=== PATIENT | female | born 1990 | race Caucasian/White ===

== ENCOUNTER 2018-04-15 23:35 | Emergency (ER) | payer OTHER, SELFPAY ==
[2018-04-15 23:35] VITALS: BP 168/81; PULSE 115; RESP 20; TEMP 36.6; O2SAT 97; BMI 31.2
--- NOTE | 2018-04-15 23:43 | ED.VISSUMM ---
- ER Visit Summary Date of Service: 04/15/18 Chief Complaint: Left wrist injury History of Present Illness: The patient is a 27 F who presents for injury to the left wrist. Patient states approximately 6 hours ago she was getting out of an above ground pool and fell off the ladder, landing on her back with her arm behind her. She is complaining of left wrist pain. She denies any loss of consciousness, head injury, neck or back pain. No other injuries other than the wrist. She is right-handed. She applied ice to the hand and was not to come to the emergency department, however noted that the pain has been worsening, now with some mild numbness to the hand. Physical Examination: Vital signs: afebrile, hemodynamically stable, no hypoxia on room air General: well nourished, well developed, in no distress Skin: warm, dry, no abrasions or contusions HEENT: normocephalic and atraumatic; PERRL, EOMI, moist mucous membranes Cardiovascular: Tachycardic rate and rhythm, 2+ radial pulses Respiratory: No increased work of breathing MSK: Moves all extremities, swelling and tenderness to the radial side dorsum of the left wrist without obvious deformity, positive snuffbox tenderness. Patient able to wiggle all fingers. Sensation intact all dermatomes. Full range of motion of the elbow and shoulder. No deformities to the forearm or humerus. Neuro: Awake and alert, oriented ?4. No facial droop, sensation and motor function intact and symmetric Test Results: Patient was offered and declined pain medication at this time. An icepack was applied to the wrist. X-rays were obtained. Emergency Department Course and Treatment: Patient was offered and declined pain medication at this time. An icepack was applied to the wrist. X-rays were obtained and showed no obvious fractures or dislocations. However given that patient had tenderness over the snuffbox and also swelling and maximal pain in this area, a thumb spica splint was placed using plaster in case of occult scaphoid fracture. After splint placement patient had good cap refill and sensation in the thumb and was still able to wiggle her fingers. Patient was given follow-up with orthopedics in 1 week for repeat evaluation. She was given one [place] in the emergency department for worsening pain. She was given a prescription for 8 [place] to use for severe pain at home and to help with nighttime throbbing. Otherwise she will use [id number] pain medication of her choice for mild to moderate pain. Return precautions given. Patient discharged home. Treatment Plan: [] Disposition: [] Impression: Left wrist sprain, concern for occult left scaphoid fracture This note was generated with [employer] dictation software. It may contain incorrect words, spelling, and punctuation that were not noted in review of the chart prior to signing ED Disposition - Plan for ED Patient: Disposition: Home or Assisted Living Chief Complaint: Upper Extremity Injury Instructions: ED Fx Wrist Navicular Poss, ED Sprain Wrist Prescriptions: Hydrocodone Bitart/Apap 5-325 [[place] 5MG-325MG] 1 tab PO Q6H PRN PRN 3 Days #8 tab PRN Reason: Pain Referrals: Casa Nieves DO [STAFF PHYSICIAN] - 1 Week (left wrist sprain, no fracture on xray but concern for possible occult scaphoid fracture) Anita Sanchez MD [Primary Care Provider] - As Needed Additional Instructions: Your x-ray did not show a fracture of the wrist, however where you are hurting and have the swelling is concerning for a possible fracture that will not be visible on x-ray for a week. Please keep the splint in place until you follow-up with the orthopedic doctor. Keep it dry, and keep the arm elevated as much as possible. Ice your wrist 3-4 times a day. You may use ibuprofen or Tylenol as needed for pain. You may use the [place] as needed for severe pain or nighttime pain. If you have any worsening of your condition or any new concerning symptoms, please return immediately to the emergency department for another evaluation.
--- NOTE | 2018-04-15 23:45 | RAD_ITS ---
STUDY: X-RAY - LEFT WRIST REASON FOR EXAM: Female, 27 years old. pt fell from pool ladder, left wrist pain TECHNIQUE: 3 view(s) of the wrist were obtained. COMPARISON: None. FINDINGS: Normal visualized distal radius and ulna. Normal radiocarpal articulation. Normal distal radioulnar articulation. Normal carpal bones. Normal carpal articulations. Normal carpometacarpal articulation of the thumb. Normal second through fifth carpometacarpal articulations. Normal visualized metacarpal bones. The soft tissue structures are unremarkable. RAD/Wrist min 3 Views IMPRESSION: Normal x-ray examination of the wrist. Electronically Signed: Mega Reardon MD at 0:10 EDT Tel , Service support ,
--- NOTE | 2018-04-15 23:46 | ED.DCSUM_ITS ---
- ER Visit Summary Date of Service: 04/15/18 Chief Complaint: Left wrist injury History of Present Illness: The patient is a 27 F who presents for injury to the left wrist. Patient states approximately 6 hours ago she was getting out of an above ground pool and fell off the ladder, landing on her back with her arm behind her. She is complaining of left wrist pain. She denies any loss of consciousness, head injury, neck or back pain. No other injuries other than the wrist. She is right-handed. She applied ice to the hand and was not to come to the emergency department, however noted that the pain has been worsening , now with some mild numbness to the hand. Physical Examination: Vital signs: afebrile, hemodynamically stable, no hypoxia on room air General: well nourished, well developed, in no distress Skin: warm, dry, no abrasions or contusions HEENT: normocephalic and atraumatic; PERRL, EOMI, moist mucous membranes Cardiovascular: Tachycardic rate and rhythm, 2+ radial pulses Respiratory: No increased work of breathing MSK: Moves all extremities, swelling and tenderness to the radial side dorsum of the left wrist without obvious deformity, positive snuffbox tenderness. Patient able to wiggle all fingers. Sensation intact all dermatomes. Full range of motion of the elbow and shoulder. No deformities to the forearm or humerus. Neuro: Awake and alert, oriented ?4. No facial droop, sensation and motor function intact and symmetric Test Results: Patient was offered and declined pain medication at this time. An icepack was applied to the wrist. X-rays were obtained. Emergency Department Course and Treatment: Patient was offered and declined pain medication at this time. An icepack was applied to the wrist. X-rays were obtained and showed no obvious fractures or dislocations. However given that patient had tenderness over the snuffbox and also swelling and maximal pain in this area, a thumb spica splint was placed using plaster in case of occult scaphoid fracture. After splint placement patient had good cap refill and sensation in the thumb and was still able to wiggle her fingers. Patient was given follow-up with orthopedics in 1 week for repeat evaluation. She was given one West in the emergency department for worsening pain. She was given a prescription for 8 West to use for severe pain at home and to help with nighttime throbbing. Otherwise she will use [id number] pain medication of her choice for mild to moderate pain. Return precautions given. Patient discharged home. Treatment Plan: [] Disposition: [] Impression: Left wrist sprain, concern for occult left scaphoid fracture This note was generated with [employer] dictation software. It may contain incorrect words, spelling, and punctuation that were not noted in review of the chart prior to signing ED Disposition - Plan for ED Patient: Disposition: Home or Assisted Living Chief Complaint: Upper Extremity Injury Instructions: ED Fx Wrist Navicular Poss, ED Sprain Wrist Prescriptions: Hydrocodone Bitart/Apap 5-325 [West 5MG-325MG] 1 tab PO Q6H PRN PRN 3 Days #8 tab PRN Reason: Pain Referrals: Casa Nieves DO [STAFF PHYSICIAN] - 1 Week (left wrist sprain, no fracture on xray but concern for possible occult scaphoid fracture) Anita Sanchez MD [Primary Care Provider] - As Needed Additional Instructions: Your x-ray did not show a fracture of the wrist, however where you are hurting and have the swelling is concerning for a possible fracture that will not be visible on x-ray for a week. Please keep the splint in place until you follow- up with the orthopedic doctor. Keep it dry, and keep the arm elevated as much as possible. Ice your wrist 3-4 times a day. You may use ibuprofen or Tylenol as needed for pain. You may use the West as needed for severe pain or nighttime pain. If you have any worsening of your condition or any new concerning symptoms, please return immediately to the emergency department for another evaluation.
--- NOTE | 2018-04-16 00:59 | DCINST.ED_ITS ---
ED Disposition - Plan for ED Patient: Disposition: Home or Assisted Living Chief Complaint: Upper Extremity Injury Instructions: ED Fx Wrist Navicular Poss, ED Sprain Wrist Prescriptions: Hydrocodone Bitart/Apap 5-325 [[place] 5MG-325MG] 1 tab PO Q6H PRN PRN 3 Days #8 tab PRN Reason: Pain Referrals: Casa Nieves DO [STAFF PHYSICIAN] - 1 Week (left wrist sprain, no fracture on xray but concern for possible occult scaphoid fracture) Anita Sanchez MD [Primary Care Provider] - As Needed Additional Instructions: Your x-ray did not show a fracture of the wrist, however where you are hurting and have the swelling is concerning for a possible fracture that will not be visible on x-ray for a week. Please keep the splint in place until you follow- up with the orthopedic doctor. Keep it dry, and keep the arm elevated as much as possible. Ice your wrist 3-4 times a day. You may use ibuprofen or Tylenol as needed for pain. You may use the [place] as needed for severe pain or nighttime pain. If you have any worsening of your condition or any new concerning symptoms, please return immediately to the emergency department for another evaluation.
[2018-04-16] MEDS: HYDROcodone Bitartrate/Apap 5/325 Tablet PO (01:11)
[2018-04-16 01:13] VITALS: PULSE 93; O2SAT 96
== END 2018-04-16 01:13 | disposition home or self-care (01) ==
PROVIDERS: Emergency Provider Emergency Medicine; Family Provider Internal Medicine; PCP Internal Medicine
DX: S63.502A Unspecified sprain of left wrist, initial encounter (principal); W17.89XA Other fall from one level to another, initial encounter; Y93.89 Activity, other specified; Y92.9 Unspecified place or not applicable
CPT/HCPCS: 29125; 73110; 99283

== ENCOUNTER 2019-06-11 12:23 | Day surgery (SDC) | payer BC, SELFPAY ==
[2019-06-11] VITALS (7 sets, daily range): BP systolic 114–133; BP diastolic 69–79; PULSE 64–111; RESP 16–20; TEMP 36.2–36.9; O2SAT 95–99; BMI 29.0
--- NOTE | 2019-06-11 12:17 | PCM.HP.BLA ---
History and Physical Date of Admission: 06/11/19 Pre-Op History and Physical ? HPI: The patient is a 29 year old female presenting for pre-operative visit. She is scheduled for?laparoscopic removal of ectopic and control of hemorrhage, for?ruptured suspected right ectopic on?today. ??Procedure discussed along with risks, benefits and complications. ?Other alternatives discussed for management. Consent form signed??Yes.? PAST?MEDICAL?HISTORY PAST MEDICAL HISTORY Diagnosis Date ? Anemia ? ? as a child ? Anxiety disorder 12/15/2015 ? Bronchitis in child ? ? Elevated WBC count 12/09/2018 ? Herpes simplex without mention of complication ? ? ? PAST?SURGICAL?HISTORY PAST SURGICAL HISTORY Procedure Laterality Date ? DELIVERY ONLY ? 08/01/15 ? , low transverse ? INSERT INTRAUTERINE DEVICE ? 11/20/2016 ? ? CURRENT?MEDICATIONS Current Outpatient Medications Medication Sig Dispense Refill ? sertraline (ZOLOFT) 100 mg tablet DAILY ? ? ? Etonogestrel-Ethinyl Estradiol (NUVARING) 0.12-0.015 mg/24 hr vaginal ring Use 1 Each vaginally as directed. INSERT ONE(1) RING VAGINALLY AND LEAVE IN PLACE FOR THREE WEEKS, THEN REMOVE FOR 1 WEEK. (Patient not taking: Reported on 06/11/2019 ) 4 Each 14 ? No current facility-administered medications for this visit.? ? ALLERGIES:?Patient has no known allergies. ? PERSONAL HISTORY:? SOCIAL?HISTORY Social History ??Socioeconomic History ?Marital status: ?Spouse name: St Phillips ?Number of children: 1 ?Years of education: Not on file ?Highest education level: Not on file ??Occupational History ?Not on file ??Social Needs ?Financial resource strain: Not on file ?Food insecurity: ?Worry: Not on file ?Inability: Not on file ?Transportation needs: ?Medical: Not on file ?Non-medical: Not on file ??Tobacco Use ?Smoking status: Current Every Day Smoker ?Packs/day: 1.00 ?Years: 11.00 ?Pack years: 11 ?Types: Cigarettes ?Smokeless tobacco: Never Used ??Substance and Sexual Activity ?Alcohol use: Yes ?Alcohol/week: 5.0 standard drinks ?Types: 2 Cans of Beer (12oz) per week ?Drug use: No ?Frequency: 1.0 times per week ?Comment: Occasional marijuana, helps sleep at night, last used 8 months ago- 01/11/2015 ?Sexual activity: Yes ?Partners: Male ? control/protection: IUD ??Lifestyle ?Physical activity: ?Days per week: Not on file ?Minutes per session: Not on file ?Stress: Not on file ??Relationships ?Social connections: ?Talks on phone: Not on file ?Gets together: Not on file ?Attends synagogue service: Not on file ?Active member of club or organization: Not on file ?Attends meetings of clubs or organizations: Not on file ?Relationship status: Not on file ?Intimate partner violence: ?Fear of current or ex partner: Not on file ?Emotionally abused: Not on file ?Physically abused: Not on file ?Forced sexual activity: Not on file ??Other Topics ?Concerns: ?Not on file ??Social History Narrative ?Not on file ? FAMILY HISTORY:? FAMILY?HISTORY FAMILY HISTORY Problem Relation Age of Onset ? Cancer Mother ?Brain ? Hypertension Father ? ? No Known Problems Sister ? ? No Known Problems Brother ? ? REVIEW OF SYMPTOMS: GENERAL: denies fevers or chills ENDOCRINOLOGY: has not been on steroids Cardiology : denies palpitations or chest pain Respiratory: denies SOB or cough Hematology: denies history of prolonged bleeding or easy bruising or VTE Allergy: Denies history of personal or family history of allergy to anesthesia ? ? PHYSICAL EXAMINATION: ? VITALS:?Blood pressure 110/60, weight 169 lb 3.2 oz (76.7 kg). ? GENERAL:??The patient is well nourished, well hydrated in?moderate?distress and pain. ?, The patient is oriented to time, place, and person. NECK:?Supple. No lynphadenopathy, normal thyroid, no thyromegaly. LUNGS:?Clear to auscultation bilaterally. no wheezes, rhonchi or rales HEART:?Regular rate and rhythm, Normal heart sounds and No murmurs or gallops ABDOMEN: soft, no hernia, no masses, Moderate tenderness in diffuse lower abdomen, rebound Absent and guarding Present PELVIC: external genitalia normal, normal Bartholin's glands, urethra, Hyampom's glands, no vulvar lesions, no cervical lesions, good vaginal support, physiologic discharge present, normal appearing perineal body and perianal region BIMANUAL: uterus normal size, shape and consistency, no adnexal masses and significant cervical motion tenderness. ?No discrete adnexal masses. ?Tenderness in both adnexal areas right greater than IMPRESSION:?Acute abdomen, suspected ruptured right ectopic with large hemoperitoneum ? PLAN:???The risks/benefits/alternatives and personal involved for the planned?laparoscopic removal of ectopic , evacuation of hemoperitoneum, and control of hemorrhage, possible removal of fallopian tube?were reviewed with the patient. Her questions were answered to her satisfaction and she desires to proceed. ?Consent was signed. ?I reviewed with her postop instructions and expectations. ? ? I have reviewed and updated past medical and surgical history, medications and allergies? oDra Moore M.D.
--- NOTE | 2019-06-11 13:00 | TISS_PTH ---
PATIENT: GEOVANNI CAMP LOC: [facility] [place] U#:[id number] AGE/SX: 29/F ROOM: RE06/11/[address]: Dr. Dora Moore MD : 1990 BED: DIS: 06/11/2019 SPEC #: [id number] RECD: 06/11/19 16:18 STATUS: ERIC DAVID #: [id number] ELLIOTT: 06/11/19 13:[address]: Dora Moore DEPT: SURGICAL PATHOLOGY RECD BY: Carlos Hayes ENTERED: 06/15/19 08:41 SP TYPE: Tissue Bx TINO DR: Dr. Anita Sanchez MD Tissues: Peritoneal cavity, NOS Procedures: Surgery Specimen Level IV HEADER OPERATION: Laparoscopic removal ectopic PRE-OP DIAGNOSIS: Acute abdomen, suspected ruptured right ectopic with large hemoperitoneum TISSUE SUBMITTED: Peritoneal biopsy MICROSCOPIC DIAGNOSIS Peritoneal biopsy: Fragments of blood clots. Scant strips of benign mesothelial cells. See comment. SJ:bashir 06/16/19 COMMENT Chorionic villi are not identified in the submitted specimen. Correlation with clinical findings and appropriate follow up are necessary. The results are reported to Dr. Moore's office on 06/16/19 at 9:34 a.m. MICROSCOPIC DESCRIPTION Slides are reviewed. GROSS DESCRIPTION Received in fixative is one container labeled with the patient's name and designated peritoneal biopsy. The specimen consists of multiple fragments of blood clots that in aggregate measure 2 x 2.5 x 0.3 cm. The entire specimen is submitted in one cassette. / GABE:bashir 06/15/19 TC:5 CPT: 67537
[2019-06-11 13:01] LABS: Hematocrit 45.6 % (37-47); Mean Corp Hgb Conc 35.1 g/dL (32-36); Mean Corpuscular Hgb 31.6 pg (27.0-32.0); Mean Corpuscular Volume 90.1 fL (81-99); Mean Platelet Vol. 9.2 fl (6.2-12.0); Platelet Count 327 K/mm3 (150-450); RBC Distribution Width CV 12.4 % (11.6-14.6); RBC Distribution Width SD 41.2 fl (35.1-43.9); Red Blood Count 5.06 M/mm3 (4.2-5.4); White Blood Count 16.1 K/mm3 (4.4-11.0)
[2019-06-11] MEDS: Vasopressin 20 UNITS/ML Vial (13:14)
[2019-06-11] MEDS: Lactated Ringers 1,000 ML 100 ML IV (13:14)
[2019-06-11 13:21] LABS: hCG Titer Quant., Serum 286 mIU/mL (1-3)
--- NOTE | 2019-06-11 13:26 | PCM.DC.TUB ---
Discharge Diet: No Restrictions - Increase fluid intake for the next 48 hours. Discharge Activity: Return to Normal Activity, May Drive - when you are no longer taking pain/narcotic meds., May Shower, May Take a Tub Bath - in 7 days Additional Activity Instructions:: Ambulate often the next week after surgery. Nothing in the vagina for 5 days. Call your doctor if your incision/area has: Continuous Slow Oozing, Sudden Increased Bleeding, Increased Pain/ Swelling, Increased Redness, Foul Smelling Discharge Call your doctor if you observe: Fever of 101 or Higher Instructions: After Laparoscopic Treatment of Ectopic Allergies/Adverse Reactions: Allergies No Known Allergies Allergy (Verified 04/15/18 23:37) Medications to take at Discharge Ibuprofen [Motrin] 600 mg PO Q6H PRN #60 tab 06/11/19 Oxycodone [Oxyir] 2.5 - 5 mg PO Q6H PRN PRN 4 Days #10 tablet 06/11/19 The following prescriptions were given: Ibuprofen [Motrin] 600 mg PO Q6H PRN #60 tab PRN Reason: Pain Transmission Status: Pending to [facility] #[facility] Oxycodone [Oxyir] 2.5 - 5 mg PO Q6H PRN PRN 4 Days #10 tablet PRN Reason: Severe Pain (6-10/10) Transmission Status: Sent to [facility] #[facility] Primary Care Physician: Anita Sanchez MD [Primary Care Provider] - Test Results: Test results from this visit will be discussed in further detail at your follow-up appointment, if applicable. Please Follow Up With: Dora Moore MD - [phone] When: With my office in 2 weeks or as needed.
--- NOTE | 2019-06-11 14:18 | OP.PCM_ITS ---
Report of Operation Date of Procedure: 06/11/19 Pre-Operative Diagnosis: Acute pelvic pain, right tubal ectopic Post-Operative Diagnosis: Same Surgery/Procedure Performed:: Laparoscopic evacuation of hemoperitoneum and right salpingostomy with removal of ectopic Description of Surgical Findings:: Some bright red blood in the pelvis and posterior cul-de-sac, dilated right fallopian tube mostly at the distal end, with some organized clot exuding from the fimbriated end. Otherwise normal-appearing tubes, uterus ovaries and peritoneal cavity electron beam welding machine operator: Sharmin Cotto Type of Anesthesia:: General Anesthesiologist: Ellen Grijalva Special Medications: none Specimen's removed: peritoneal biopsy, supsected ectopic Drains: none Estimated Blood Loss (mL): 100 Fluids Replaced: 1100 cc LR Description of Procedure: The patient was taken to the operating room where she was prepped and draped in the dorsolithotomy position. A weighted speculum was placed in the vagina and the anterior lip of the cervix was grasped with a tenaculum. The Merlene uterine manipulator was placed and the remainder of the instruments were removed from the vagina. Attention was turned to the abdomen. All port sites were infiltrated with 0.5% Marcaine before skin incisions were made. A 5 mm [intraumbilical] incision was made. The anterior abdominal wall was tented up with 2 towel clamps while a 5 mm blade less trocar and sleeve were [directly inserted]. Intraperitoneal placement was confirmed with the laparoscope. The pneumoperitoneum was created and the underlying abdominal contents were intact. The patient was placed in Trendelenburg. Right and left lower quadrant ports were placed under direct visualization lateral to the inferior epigastric vessels. The bowel was swept away and the above findings were noted. The right tube appeared dilated and there was some organized clot at the end. It was only dilated at the distal end. The left fallopian tube, both ovaries and the remainder the peritoneal cavity and posterior cul-de-sac appeared normal. There was small amount of blood in the colic gutters. The hemoperitoneum was removed with suction tube blower. I then injected 8 cc of vasopressin solution which was 20 units of vasopressin and 50 cc of injectable saline. I attempted to injected into the wall of the tube where the ectopic was located, however most was just injected in the peritoneal cavity. I then used monopolar scissors to make an incision in the dilated end of the tube. Suction tube blower was then used to hydrodissect and irrigate out the tube and any conten ts. Small pieces of the clot and what were expected to be the ectopic were grasped with a grasper and brought out through the 5 mm port. The remainder the was suctioned out of the pelvic cavity. The tube was hemostatic. The lateral ports were removed under direct visualization and low pressure. There is no bleeding from the port sites. The remainder the pneumoperitoneum was released. The skin incisions were closed with Monocryl suture in a subcuticular fashion and skin glue . The vaginal instruments were removed and the vaginal sweep was completed by me. The procedure was performed by me with assistance. All sponge and needle counts were correct and the patient was taken to the recovery room in stable condition. Grafts/Implants Used: none - Complications none
[2019-06-11] MEDS: Bupivacaine Mpf 0.5% 30 ML VIAL (14:21)
== END 2019-06-11 16:15 | disposition home or self-care (01) ==
LOC: SDC 12:28 → AC 12:31
PROVIDERS: Family Provider Internal Medicine; PCP Internal Medicine; Referring Provider Obstetrics & Gynecology; Visit Provider Obstetrics & Gynecology
PROC: 10T24ZZ Resection of Products of Conception, Ectopic, Percutaneous Endoscopic Approach (ICD-10-PCS; CPT 59150; principal; 2019-06-11 12:45)
DX: O00.101 Right tubal pregnancy without intrauterine pregnancy (principal); F17.210 Nicotine dependence, cigarettes, uncomplicated
CPT/HCPCS: 00840; 59151; 84702; 85027; 86850; 86900; 86901; 88305; J7120; J2405

== ENCOUNTER 2020-02-29 14:08 | Emergency (ER) | payer BC, SELFPAY ==
[2019-06-11 12:56] VITALS: BMI 29.0
[2020-02-29 14:09] VITALS: BP 138/80; PULSE 102; RESP 20; TEMP 36.7; O2SAT 94; BMI 25.7
--- NOTE | 2020-02-29 14:28 | US_ITS ---
STUDY: ULTRASOUND TRANSVAGINAL CLINICAL: Female, 29 years old. LLQ PAIN ON AND OFF SHARP SPOTTING HX OF ECTOPIC TECHNIQUE: Transvaginal COMPARISON: None. FINDINGS: Normal uterine size measuring 7.9 x 4.9 x 3.5 cm cm in maximal craniocaudal dimension. There are no myometrial masses. Normal endometrial thickness measuring 10 mm. There are no endometrial masses, and there is a small amount fluid in the endometrial cavity. Normal uterine cervix. Normal right ovary, measuring 3.9 x 2.0 x 2.0 cm. There are multiple follicles without a dominant cyst. Normal left ovary, measuring 3.3 x 2.7 x 1.6 cm. There are multiple follicles without a dominant cyst. There is a small amount free fluid in the pelvis. Polycystic ovary disease: No. US/Transvaginal w/Preg US IMPRESSION: Normal transvaginal pelvic ultrasound without an intrauterine gestational sac in a small amount of endometrial fluid. Differential diagnosis includes an early intrauterine , early ectopic , or missed . Correlation with serial beta-hCG measurements is recommended. Electronically Signed: Luis Daniel Calvo MD at 16:22 EDT Tel , Service support ,
--- NOTE | 2020-02-29 14:42 | ED.DCSUM_ITS ---
- ER Visit Summary Date of Service: 02/29/20 Chief Complaint: History of Present Illness: The patient is a 29 F presents after having positive test at home. Patient states yesterday she was having lower pelvic cramping. She is unsure if this was on the right or left side. She currently has no pain. She has history of ectopic and is concerned about possibility of ectopic . She is G3, P1 Ab1. Her last menstrual period was February 16. She states she has occasional spotting but no different than usual. Denies other complaints. Physical Examination: Vitals are stable. Patient is afebrile. Alert no acute distress. HEENT exam is unremarkable. Neck is supple. Lungs are clear and equal bilaterally. Heart is regular rate and rhythm. Abdomen is soft nontender nondistended. No guarding or rebound Extremities are unremarkable. Skin is warm and dry. No focal neurologic deficit. Remainder of exam is unremarkable. Emergency Department Course and Treatment: Blood type A positive. hCG quant less than 1. Pelvic ultrasound shows normal transvaginal pelvic ultrasound without an intrauterine gestational sac in a small amount of endometrial fluid. Differential diagnosis includes an early intrauterine , early ectopic , or missed . Correlation with serial beta-hCG measurements is recommended. Patient was advised of these findings. She is advised to follow- up with her FARM DEMONSTRATOR. Advised to return to the ED for worsening complaints. Disposition: Discharge home Impression: Pelvic cramping, resolved This note was generated with Dissolve dictation software. It may contain incorrect words, spelling, and punctuation that were not noted in review of the chart prior to signing ED Disposition - Plan for ED Patient: Instructions: ED Pelvic Pain [facility] Referrals: Yadira Cartagena MD [STAFF PHYSICIAN] -
[2020-02-29 16:19] LABS: hCG Titer Quant., Serum < 1 mIU/mL (1-3)
--- NOTE | 2020-02-29 16:49 | ED.DEP ---
ED Disposition - Plan for ED Patient: Instructions: ED Pelvic Pain [facility] Referrals: Yadira Cartagena MD [STAFF PHYSICIAN] -
[2020-02-29 17:08] VITALS: BP 131/78; PULSE 76; RESP 16; O2SAT 98
== END 2020-02-29 17:10 | disposition home or self-care (01) ==
PROVIDERS: Emergency Provider Emergency Medicine; PCP Internal Medicine
DX: R10.2 Pelvic and perineal pain (principal); R11.0 Nausea; Z72.0 Tobacco use
CPT/HCPCS: 76817; 84702; 86900; 86901; 93976; 99282; A4216

== ENCOUNTER 2020-04-02 14:43 | Emergency (ER) | payer BC, SELFPAY ==
[2020-04-02 14:45] VITALS: BP 118/81; PULSE 108; RESP 20; TEMP 35.9; O2SAT 98; BMI 27.1
--- NOTE | 2020-04-02 15:22 | ED.DCSUM_ITS ---
History of Present Illness Chief Complaint: Anxiety Informant: Patient Context: Gradual Onset Conflict: Family, - - health. deaths in family. Timing: Continuous Current Severity: Severe Maximum Severity: Severe Worsened by: Situational factors Relieved by: Talking with her therapist which she has not been able to do lately Associated Symptoms: Decreased Concentration, Paranoia. Negative for: Suicidal Thoughts, Angry, Hostile, Threatening, Confusion, Visual Hallucinations, Auditory Hallucinations Narrative: Patient states she has been under an undue amount of stress lately. States she has an appointment with her therapist for some medication adjustments and a counseling session, but that is next week. She states prior to this, several family members were forcing her to discuss things that she was not ready to talk about yet, but now she is ready and looking forward to her therapist appointment. She has a history of anxiety, she used to be on Zoloft for it, she thinks it was giving her some side effect so she discontinued it sometime ago and is looking forward to getting on something that is going to help without making her tired or give her other side effects. She denies any suicidality or homicidality. She admittedly is paranoid about several things health-related. She had a family member with brain cancer and one with lung cancer, she is scared that she will get cancer as a result of this although she does not have any symptoms. She has been talking on the phone the crisis, she was not sent here today, and she states herself that after her discussed with crisis, that she does not need to be pink slipped for anything, and may or may not receive benefit from coming to the emergency department today which she did on her own free well. She states that she likes to use natural supplementation and treatments and try to stay away from medications if possible, she has been taking a serotonin precursor supplement. She uses marijuana on occasion that helps her anxiety but she is concerned about using too much of it. She also smokes cigarettes. 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 She has been using no illicit substances other than marijuana. - Past Medical History (1) Anxiety Status: Chronic Past Medical History - Allergies and Home Meds Allergies/Adverse Reactions: Allergies No Known Allergies Allergy (Verified 04/02/20 14:45) Primary Care Physician: Anita Sanchez MD [Primary Care Provider] - Lives: Spouse/ Significant Other Smoking Status: Current every day smoker Alcohol: None, Sober Drugs: Marijuana Review of Systems General: Denies: Chills, Fever, Sweats Eyes: Denies: Visual changes - bilaterally, Diplopia ENT: Denies: Rhinorrhea, Sore throat Cardiovascular: Denies: Chest pain, Palpitations, Heart racing Respiratory: Denies: Dyspnea, Cough, Dyspnea on exertion Gastrointestinal: Denies: Abdominal pain, Nausea, Vomiting, Diarrhea, Melena, Hematochezia Genitourinary: Denies: Dysuria, Hematuria, Frequency Musculoskeletal: Denies: Neck pain, Back pain, Extremity Pain Skin: Denies: Rash, Wounds Neurological: Denies: Headache, Weakness, Numbness Psych: Reports: Anxiety. Denies: Suicidal thoughts, Suicidal ideations Physical Exam Vital Signs/Narrative: Vital Signs Temp Pulse Resp BP Pulse Ox 04/02/20 14:45 96.6 F L 108 H 20 H 118/81 H 98 Inital Vital Signs reviewed: Yes General: Well nourished, Well developed, - - NAD Head: Normocephalic, Atraumatic Neck: Supple, - - FROM Respiratory: No distress Extremities: Nontender, No Edema, Healed prior injuries - left volar wrist Skin: Normal color, No rash, No Trauma Neurological: Alert, Oriented x3, Cranial nerves II-XII grossly intact, Normal Strength, Normal Sensation, Normal Gait Psych: Logical sequential goal directed thoughts, No suicidal or homicidal ideation, Good Insight, Good Judgement, Labile - Initially speaks calmly and normally. Good eye contact. Progressively becomes more anxious, speech becomes a little pressured, and at times becomes tearful but able to recover. Not delusional, not actively paranoid although discusses her fear of cancer. Diagnostic/Tx/Re-eval I agree that I do not think there is any reason to pink slip this patient at this time. I think following up with the therapist is certainly in her best interest and she intends to. We discussed medication treatment of what we provide here in the ER, we try to avoid prescribing long-term antidepressant/antianxiety medications since we are not following up on the patient and some of them can cause suicidality. She totally understands this, and is appreciative of anything we can help her with. I discussed benzodiazepines, and the fact that they may not be best for her given her addictive personality and she agrees with that assessment as well and does not want anything that is going to potentially lead to more addictions which she has had issues overcoming in the past. She does seem anxious, her mind seems to race, however she seems to be able to recognize that, is insightful, and is doing things like putting on headphones and listening to music, playing her drums which seems to be a good outlet for her, and other relatively healthy a ctivities to try to manage her stress. I do not think it would be unreasonable to try Vistaril with her, she has never had it and is willing to try it and requests low dose if possible. I think 25 mg 1-2 caplets as needed 3 times daily would be reasonable and she was given an initial dose here. She is following up. ED Disposition - Plan for ED Patient: Disposition: Home or Assisted Living Diagnosis: Anxiety Instructions: ED Panic Attack, ED Stress React Prescriptions: hydrOXYzine pamoate capsule [Vistaril] 25 - 50 mg PO TID PRN PRN #30 cap PRN Reason: Anxiety Transmission Status: Pending to [facility] Referrals: Anita Sanchez MD [Primary Care Provider] - Keep Pati appointment (And/or your therapist)
[2020-04-02] MEDS: hydrOXYzine PAM 25 MG Capsule 50 MG PO (15:25)
== END 2020-04-02 15:46 | disposition home or self-care (01) ==
LOC: ED 15:41
PROVIDERS: Emergency Provider Emergency Medicine; PCP Internal Medicine
DX: F41.9 Anxiety disorder, unspecified (principal); F17.210 Nicotine dependence, cigarettes, uncomplicated
CPT/HCPCS: 99283

== ENCOUNTER 2020-11-06 17:00 | Outpatient (RCR) | payer OTHER, SELFPAY | END 2020-11-12 23:59 | LOC: NS 17:00 | PROVIDERS: PCP Internal Medicine; Visit Provider Nurse Practitioner Family | DX: Z71.3 Dietary counseling and surveillance (principal); O24.419 Gestational diabetes mellitus in pregnancy, unspecified control; Z3A.00 Weeks of gestation of pregnancy not specified | CPT/HCPCS: 97802; G0108 ==

== ENCOUNTER 2020-11-22 16:00 | Outpatient (RCR) | payer OTHER, SELFPAY | END 2020-11-22 23:59 | disposition home or self-care (01) | LOC: DC 16:00 | PROVIDERS: PCP Internal Medicine; Visit Provider Nurse Practitioner Family | DX: O24.419 Gestational diabetes mellitus in pregnancy, unspecified control (principal); Z3A.00 Weeks of gestation of pregnancy not specified | CPT/HCPCS: G0108 ==

== ENCOUNTER → 2020-12-29 16:45 | Outpatient (CLI) | payer OTHER, SELFPAY | PROVIDERS: Referring Provider Obstetrics & Gynecology; Visit Provider Obstetrics & Gynecology | DX: Z03.818 Encounter for observation for suspected exposure to other biological agents ruled out (principal) | CPT/HCPCS: 87635; C9803; U0002 ==

== ENCOUNTER 2021-01-04 10:05 | Inpatient (IN) | payer OTHER, SELFPAY ==
--- NOTE | 2020-12-29 13:29 | HP.PCM_ITS ---
- Problem List (1) 39 weeks gestation of Status: Acute (2) History of delivery Status: Acute (3) Request for sterilization Status: Acute (4) Gestational diabetes Status: Acute History and Physical Date of Admission: 01/04/21 DATE OF SERVICE: December 29, 2020 ? PROBLEM:?history section, desires repeat section, desires s terilization ? PAST SURGICAL HISTORY:? PAST SURGICAL HISTORYExpand by Default PAST SURGICAL HISTORY Procedure Laterality Date ? DELIVERY ONLY ? 08/01/15 ? , low transverse ? INSERT INTRAUTERINE DEVICE ? 11/20/2016 ? OFFICE LEEP ? 2019 ? BARB 2 ? RX ECTOP PREG BY LAPAROSCOPE Right 06/11/2019 ? right salpingostomy for ectopic ? PAST MEDICAL HISTORY:? PAST MEDICAL HISTORYExpand by Default PAST MEDICAL HISTORY Diagnosis Date ? Anemia ? ? as a child ? Anxiety disorder 12/15/2015 ? Bipolar disorder (HCC) ? ? Bronchitis in child ? ? Elevated WBC count 12/09/2018 ? Gestational diabetes mellitus, class A1 11/03/2020 ? Herpes simplex without mention of complication ? ? 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 SUBJECTIVE:?No regular ctx, vb, lof. Good FM. Pt request sterilization. She is 100% certain that she does not desires more pregnancies in the future.? ? SOCIAL HISTORY:? SOCIAL HISTORYExpand by Default Social History ? Tobacco Use ? Smoking status: Current Every Day Smoker ? ? Packs/day: 1.00 ? ? Years: 11.00 ? ? Pack years: 11.00 ? ? Types: Cigarettes ? Smokeless tobacco: Never Used Substance Use Topics ? Alcohol use: Yes ? ? Alcohol/week: 5.0 standard drinks ? ? Types: 2 Cans of Beer (12oz) per week ? Drug use: No ? ? Frequency: 1.0 times per week ? ? Comment: Occasional marijuana, helps sleep at night, last used 8 months ago- 01/11/2015 ? ALLERGIESExpand by Default ALLERGIES No Known Allergies ? Current Outpatient Medications on File Prior to Visit Medication Sig ? insulin NPH (HumuLIN N,NovoLIN N) pen Inject 16 Units subcutaneously daily at bedtime. ? Insulin Braggs, Disposable, (UNIFINE PENTIPS) 29 gauge x 1/2 1 Each daily at bedtime. ? buPROPion XL (WELLBUTRIN XL) 150 mg 24 hr tablet Take 150 mg by mouth once daily. ? blood sugar diagnostic test strip 1 Strip four times daily. Use as instructed ? Lancets lancets 1 Each four times daily. Use as instructed ? Urine Glucose-Ketones Test (KETO-DIASTIX) strp 1 Strip four times daily. ? 21/iron fu/folic acid ( COMPLETE ORAL) Take by mouth. No current facility-administered medications on file prior to visit. ? ? OBJECTIVE: ? VITALS: BP 118/70 ? Wt 194 lb 6.4 oz (88.2 kg) ? LMP 03/24/2020 ? BMI 33.37 kg/m? ? HEENT: ?Normocephalic, atraumatic, Mucus membranes moist without lesions. ? NECK: ???Soft and Supple. ?No adenopathy , thyromegaly or bruits. ? SKIN: No lesions. ? CHEST: Clear to auscultation. ?No wheezes or rales. ?Good air exchange. ? HEART: Regular rate and rhythm ?No S3 or S4. ?No gallops or rubs. ? BACK: Nontender with no CVA tenderness. ? ABDOMEN: Soft, non-tender, non-distended, no masses, no hepatosplenomegaly. ? LOWER EXTREMITIES: There was no pitting edema, no palpable cords and no skin changes. ? ASSESSMENT:?history prior section, patient desires repeat section, desires permanent sterilization ? PLAN:?Discussed r/b/a to TOLAC vs repeat section. Patient requests repeat section with sterilization. She understands a tubal ligation or salpingectomy is permanent, irreversible, and there is a risk of regret. She understands all other options for control. Discussed repeat section with bilateral salpingectomy.?The rationale for the proposed surgery was discussed in addition to risks, benefits, and alternatives. ?General pre- and post-operative care was reviewed. ?Questions were answered. ?After discussion, the patient indicated a desire to proceed with the planned surgery. ? Carito Suero,?DO
[2021-01-04] VITALS (16 sets, daily range): BP systolic 107–122; BP diastolic 54–72; PULSE 73–88; RESP 12–18; TEMP 36.3–37.1; O2SAT 95–98; BMI 34.1
[2021-01-04] MEDS: Lactated Ringers 1,000 ML 999 ML IV (10:45)
[2021-01-04 11:07] LABS: Absolute Lymphocyte Count 1.87 X10^3/uL (0.83-4.51); Absolute Neutrophil Count 9.7 X10^3/uL (2.0-7.7); Basophil# 0.03 X10^3/uL; Basophil% 0.2 % (0-1); Eosinophil# 0.09 X10^3/uL; Eosinophils% 0.7 % (0-5); Hematocrit 33.3 % (37-47); Hemoglobin 11.7 g/dL (12.0-15.0); Lymphocyte # 1.87 X10^3/ul (4.0); Lymphocyte % 15.1 % (19-41); Mean Corp Hgb Conc 35.1 g/dL (32-36); Mean Corpuscular Hgb 32.1 pg (27.0-32.0); Mean Corpuscular Volume 91.2 fL (81-99); Mean Platelet Vol. 10.3 fl (6.2-12.0); Monocyte# 0.62 X10^3/uL; NRBC Flagged by Analyzer 0 % (0-5); Neutrophil # 9.71 X10^3/uL (2.7-7.7); Neutrophil % 78.2 % (47-70); Platelet Count 180 K/mm3 (150-450); RBC Distribution Width CV 13.1 % (11.6-14.6); Red Blood Count 3.65 M/mm3 (4.2-5.4); White Blood Count 12.4 K/mm3 (4.4-11.0)
[2021-01-04 11:11] LABS: Bedside Glucose 78 mg/dL (70-110)
[2021-01-04] MEDS: Lactated Ringers 1,000 ML 150 ML IV (11:43)
[2021-01-04] MEDS: Sodium Citrate/Citric Acid 30 ML UDC PO (11:46)
[2021-01-04] MEDS: Acetaminophen 500 MG Tablet 1000 MG PO ×2 (11:47→17:22)
[2021-01-04] MEDS: Cefazolin 2 GM in 0.9% Normal Saline 100 ML IV (12:08)
--- NOTE | 2021-01-04 13:14 | PCM.OPRPT ---
Problem List (1) 39 weeks gestation of Status: Acute (2) History of delivery Status: Acute (3) Gestational diabetes Status: Acute Report of Operation Date of Procedure: 01/04/21 Pre-Operative Diagnosis: 39 week gestation, A2GDM, history prior section Post-Operative Diagnosis: As above Surgery/Procedure Performed:: RLTCS via pfannenstiel incision Description of Surgical Findings:: Viable male infant in cephalic presentation and not engaged in the pelvis. Meconium stained fluid. Loose nuchal x1. Normal-appearing placenta with three-vessel cord. Normal-appearing uterus, bilateral tubes, bilateral ovaries. Minimal scar tissue. Fascia was dense and adhered to the rectus muscles. naval aircrewman helicopter: Angelica PINZON assisted with the entire procedure from start to finish. She assisted with prepping and draping the patient, she assisted with delivery of baby and closure. Type of Anesthesia:: General Special Medications: None Specimen's removed: Placenta Drains: Hammond Estimated Blood Loss (mL): 900 cc Fluids Replaced: 1000 cc Description of Procedure: The patient was taken to the operating room where spinal anesthesia was found be adequate. She was prepped and draped in dorsal position with a leftward tilt. A Pfannenstiel skin incision was made along the prior incision site with a scalpel, and this was carried down to the underlying layer of fascia. Fascia was incised in the midline. The fascia was extended laterally using Lafleur scissors. The fascia was dissected off the rectus muscles using a combination of sharp and blunt dissection. The fascia was densely adhered to the rectus muscles. Rectus muscles were in the midline. The peritoneum was entered bluntly with good visualization of the bladder. The incision was extended bluntly. A bladder flap was created. A low transverse incision was made on the uterus with a scalpel. Meconium stained fluid was noted. The infant's head was easily brought to the hysterotomy in a flexed position. The head was delivered, followed by the body without any force or delay. The mouth and nose of the baby were suctioned with the bulb suction. A viable male was delivered atraumatically. Cord was clamped and cut after a slight delay. The infant was handed off to the nursery staff. The placenta was removed. The uterus was exteriorized. The uterus was cleared of all clot and debris. Uterus was closed with 1-0 Vicryl in a running locked fashion. A second imbricating layer was then performed using 1-0 Vicryl. Several additional [id number] sutures were placed for hemostasis. A 3 x 2 cm hematoma was noted in the left broad ligament and pressure was applied. This hematoma was stable throughout the case. Uterus was placed back into the abdomen. The incision was inspected and good hemostasis was noted. Cisco was placed over the incision. Hematoma was then evaluated again and noted to be stable in size and not expanding. The peritoneum was closed with 3-0 Vicryl in a running fashion. The rectus muscles were hemostatic. The fascia was closed with 1-0 Vicryl in a running fashion. The subcutaneous space was irrigated and made hemostatic with Bovie cautery. Subcutaneous space was reapproximated with 3-0 Vicryl. The skin was closed with 4-0 Monocryl in a subcuticular fashion. Steri-Strips and a dressing were placed. The patient was taken to the recovery room in stable condition. Grafts/Implants Used: None - Complications None - Admit VTE Documentation VTE Present on Admission: No VTE Mechan Device Prophylaxis: SCD's VTE Pharm Prophylaxis ordered?: Yes
[2021-01-04] MEDS: Oxytocin 30 units/NS 500 ml 30 UNITS/500 ML IV.SOLN 167 UNITS IV (13:29)
[2021-01-04] MEDS: Nalbuphine 10 MG/ML Ampul 5 MG IV (14:05)
[2021-01-04] MEDS: 0.9% Saline Lock 10 ML Syringe IV ×2 (14:17→18:44)
[2021-01-04] MEDS: Ketorolac 30 MG/ML Syringe IV ×2 (14:17→20:04)
[2021-01-04 15:15] LABS: Bedside Glucose 87 mg/dL (70-110)
[2021-01-04 15:17] LABS: Amphetamine Urine VISTA NEGATIVE (<1000 ng/mL); Barbiturate Urine VISTA NEGATIVE (< 200 ng/mL); Benzodiazepine Urine VISTA NEGATIVE (< 200 ng/mL); Cocaine Urine VISTA NEGATIVE (< 300 ng/mL); Ecstacy Urine VISTA NEGATIVE (< 500 ng/mL); Methadone Urine VISTA NEGATIVE (< 300 ng/mL); PCP Urine VISTA NEGATIVE (< 25 ng/mL); THC Urine VISTA NEGATIVE (< 50 ng/mL); Vista UDS pH Range 7
[2021-01-04] MEDS: Lactated Ringers 1,000 ML 100 ML IV (16:43)
[2021-01-04] MEDS: Ondansetron 4 MG/2 ML Vial IV (17:20)
[2021-01-04] MEDS: proCHLORPERazine 10 MG/2 ML Vial IV (18:42)
[2021-01-05] MEDS: Enoxaparin 40 MG/0.4 ML Syringe SC (00:29)
[2021-01-05] MEDS: Acetaminophen 500 MG Tablet 1000 MG PO ×3 (00:29→11:27)
[2021-01-05] MEDS: Ketorolac 30 MG/ML Syringe IV ×2 (02:30→08:02)
[2021-01-05] MEDS: 0.9% Saline Lock 10 ML Syringe IV (02:31)
[2021-01-05 04:48] VITALS: BP 98/51; PULSE 70; RESP 16; TEMP 36.6
[2021-01-05 05:07] LABS: Hemoglobin 9.7 g/dL (12.0-15.0); Mean Corp Hgb Conc 34.6 g/dL (32-36); Mean Corpuscular Hgb 32.3 pg (27.0-32.0); Mean Corpuscular Volume 93.3 fL (81-99); Mean Platelet Vol. 9.8 fl (6.2-12.0); Platelet Count 159 K/mm3 (150-450); RBC Distribution Width CV 13.3 % (11.6-14.6); White Blood Count 14.9 K/mm3 (4.4-11.0)
[2021-01-05 05:21] LABS: Bedside Glucose 134 mg/dL (70-110)
[2021-01-05 08:15] VITALS: BP 105/57; PULSE 77; RESP 14; TEMP 36.6; O2SAT 96
--- NOTE | 2021-01-05 08:38 | PN.OBGYN_ITS ---
Patient Problems: Active and Suspected Problems 39 weeks gestation of (Acute) History of delivery (Acute) Gestational diabetes (Acute) Subjective: Doing well per patient and nursing staff. Ambulating and taking p.o. without difficulty. Voiding and passing flatus. Denies any headache, chest pain, shortness of breath, increased vaginal bleeding or increased pain. Pain controlled at this time. Breast-feeding. Planning discharge home today - Physical Exam Vitals/I&O's: Vital Signs Temp Pulse Resp BP Pulse Ox 97.9 F 70 16 98/51 L 98 01/05/21 04:48 01/05/21 04:48 01/05/21 04:48 01/05/21 04:48 01/04/21 23:34 Oxygen Delivery Method Room Air Weight: 199 lb Body Mass Index (BMI) 34.1 Intake and Output for Last 24 Hours 01/03/21 01/04/21 01/05/21 23:59 23:59 23:59 Intake Total 2875 / 2875 753.33 / 753.33 Output Total 2550 / 2550 1925 / 1925 Balance 325 / 325 -1171.67 / -1171.67 General: Alert, Oriented x3, Cooperative HEENT: Atraumatic, Normocephalic Neck: Trachea Midline Lungs: Clear to auscultation, Normal air movement, No rhonchi, No wheeze Cardiovascular: Regular rate, Regular Rhythm, No murmurs Abdomen: Soft, Non Tender - Dressing dry and intact, Hypoactive Bowel Sounds Extremities: No edema - Homans negative bilaterally Psych/Mental Status: Normal Affect, Appropriate Laboratory Results 01/04/21 10:45: WBC 12.4 H, RBC 3.65 L, Hgb 11.7 L, Hct 33.3 L, MCV 91.2, MCH 32.1 H, MCHC 35.1, RDW Std Deviation 43.0, RDW Coeff of Miko 13.1, Plt Count 180, MPV 10.3, Immature Gran % (Auto) 0.800, Neut % (Auto) 78.2 H, Lymph % (Auto) 15.1 L, Thurston % (Auto) 5.0, Eos % (Auto) 0.7, Baso % (Auto) 0.2, Absolute Neuts (auto) 9.7 H, Absolute Lymphs (auto) 1.87, Nucleated RBC % 0 01/04/21 10:45: Blood Type A POSITIVE, Antibody Screen NEGATIVE 01/04/21 10:51: POC Glucose 78 01/04/21 14:12: Urine Opiates Screen NEGATIVE, Urine Methadone Screen NEGATIVE, Ur Barbiturates Screen NEGATIVE, Ur Phencyclidine Scrn NEGATIVE, Ur Amphetamines Screen NEGATIVE, U Methamphetamin-MDMA NEGATIVE, U Benzodiazepines Scrn NEGATIVE, Urine Cocaine Screen NEGATIVE, U Cannabinoids Screen NEGATIVE, Ur Drug Screen Comment 01/04/21 14:59: POC Glucose 87 01/05/21 04:57: WBC 14.9 H, RBC 3.00 L, Hgb 9.7 L, Hct 28.0 L, MCV 93.3, MCH 32.3 H, MCHC 34.6, RDW Std Deviation 45.0 H, RDW Coeff of Miko 13.3, Plt Count 159, MPV 9.8 01/05/21 05:11: POC Glucose 134 H Current Medications Acetaminophen (Acetaminophen 500 Mg Tablet) 1,000 mg PO Q6 PENDING SALE TO [facility] Last Admin: 01/05/21 06:00 Dose: 1,000 mg Documented by: Bisacodyl (Bisacodyl 10 Mg Suppository) 10 mg RC UD PRN PRN Reason: If no BM Diphenhydramine HCl (Diphenhydramine 25 Mg Capsule) 25 mg PO Q6H PRN PRN PRN Reason: ITCHING Stop: 01/05/21 13:34 Enoxaparin Sodium (Enoxaparin 40 Mg/0.4 Ml Syringe) 40 mg SC DAILY@0030 PENDING SALE TO [facility] Last Admin: 01/05/21 00:29 Dose: 40 mg Documented by: Hydrocortisone (Hydrocortisone 2.5% Crm) 1 applic TOPICAL TID PRN PRN; Protocol PRN Reason: Discomfort Lactated Ringer's () 1,000 mls @ 100 mls/hr IV .Q10H PENDING SALE TO [facility] Last Infusion: 01/05/21 00:15 Dose: 0 mls/hr Documented by: Ibuprofen (Ibuprofen 600 Mg Tablet) 600 mg PO Q6H PENDING SALE TO [facility] Methylergonovine Maleate (Methylergonovine 0.2 Mg/Ml Ampul) 0.2 mg IM X1 PRN PRN Reason: Uterine Atony Nalbuphine HCl (Nalbuphine 10 Mg/Ml Ampul) 5 mg IV Q3H PRN PRN PRN Reason: ITCHING Stop: 01/05/21 13:34 Last Admin: 01/04/21 14:05 Dose: 5 mg Documented by: Naloxone HCl (Naloxone 0.4 Mg/Ml Syringe) 0.02 mg IV Q1M PRN PRN Reason: RR <10 and pt unresponsive Ondansetron HCl (Ondansetron 4 Mg/2 Ml Vial) 4 mg IV Q4H PRN PRN PRN Reason: Nausea Last Admin: 01/04/21 17:20 Dose: 4 mg Documented by: Oxycodone HCl (Oxycodone 5 Mg Tablet) 5 - 10 mg PO Q4H PRN PRN PRN Reason: Pain Score 4-10 Prochlorperazine Edisylate (Prochlorperazine 10 Mg/2 Ml Vial) 10 mg IV Q6H PRN PRN PRN Reason: NAUSEA Last Admin: 01/04/21 18:42 Dose: 10 mg Documented by: Senna/Docusate Sodium (Senna/Docusate Sodium 1 Tablet) 1 - 2 tablet PO DAILY GIN Simethicone (Simethicone 80 Mg Tablet) 80 mg PO PCHS PRN PRN Reason: Indigestion/stomach pain Sodium Chloride (0.9% Saline Lock 10 Ml Syringe) 5 - 15 ml IV UD PRN PRN Reason: SALINE FLUSH Last Admin: 01/05/21 02:31 Dose: 10 ml Documented by: Medical Necessity - Tobacco Use Smoking Status: Current every day smoker Assessment/Plan All Active Problems 39 weeks gestation of (Acute) History of delivery (Acute) Gestational diabetes (Acute) A:Repeat LTCS Acute blood loss anemia P: 1) Routine and postoperative care 2) Pain management 3) Iron supplement 4) Lovenox for DVT prophylaxis, d/c upon discharge 5) fasting BS 134. Recommend fasting and prepradial BS checks at home. If increasing, recommend calling for further recommendations. 6) Planning discharge home tocay
[2021-01-05] MEDS: Senna/Docusate Sodium 1 Tablet PO (11:27)
[2021-01-05] MEDS: Ferrous Sulfate 325 MG Tablet PO (11:27)
[2021-01-05 15:00] VITALS: BP 110/67; PULSE 68; RESP 14; TEMP 36.6
[2021-01-05] MEDS: Ibuprofen 600 MG Tablet PO (15:25)
--- NOTE | 2021-01-05 16:04 | DS.PCM_ITS ---
Discharge Date and Diagnosis - Problem List Patient Problems: Active and Suspected Problems 39 weeks gestation of (Acute) History of delivery (Acute) Gestational diabetes (Acute) Date of Admission: 01/04/21 Date of Discharge: 01/05/21 - Primary Discharge Diagnosis Acute Problems: Active Problems 39 weeks gestation of (Acute) History of delivery (Acute) Gestational diabetes (Acute) Hospital Course and Treatment Summary of Care Provided: The patient is a 30 year old F for repeat LTCS on 01/04/[address] Suero. GDMA2 with fasting BS POD #1 mildly elevated. Acute blood loss anemia. Discharge home per patient request POD #1. Hospital stay uncomplicated. Patient Problems: Active and Suspected Problems 39 weeks gestation of (Acute) History of delivery (Acute) Gestational diabetes (Acute) - Physical Exam Vitals/I&O's: Vital Signs Temp Pulse Resp BP Pulse Ox 98 F 68 14 110/67 96 01/05/21 15:00 01/05/21 15:00 01/05/21 15:00 01/05/21 15:00 01/05/21 08:15 Oxygen Delivery Method Room Air Weight: 199 lb Body Mass Index (BMI) 34.1 Intake and Output for Last 24 Hours 01/03/21 01/04/21 01/05/21 23:59 23:59 23:59 Intake Total 2875 / 2875 753.33 / 753.33 Output Total 2550 / 2550 1925 / 1925 Balance 325 / 325 -1171.67 / -1171.67 Laboratory Results 01/05/21 04:57: WBC 14.9 H, RBC 3.00 L, Hgb 9.7 L, Hct 28.0 L, MCV 93.3, MCH 32.3 H, MCHC 34.6, RDW Std Deviation 45.0 H, RDW Coeff of Miko 13.3, Plt Count 159, MPV 9.8 01/05/21 05:11: POC Glucose 134 H Current Medications Acetaminophen (Acetaminophen 500 Mg Tablet) 1,000 mg PO Q6 GIN Last Admin: 01/05/21 11:27 Dose: 1,000 mg Documented by: Bisacodyl (Bisacodyl 10 Mg Suppository) 10 mg RC UD PRN PRN Reason: If no BM Enoxaparin Sodium (Enoxaparin 40 Mg/0.4 Ml Syringe) 40 mg SC DAILY@0030 [facility] Last Admin: 01/05/21 00:29 Dose: 40 mg Documented by: Ferrous Sulfate (Ferrous Sulfate 325 Mg Tablet) 325 mg PO 1200,1700 [facility] Last Admin: 01/05/21 11:27 Dose: 325 mg Documented by: Hydrocortisone (Hydrocortisone 2.5% Crm) 1 applic TOPICAL TID PRN PRN; Protocol PRN Reason: Discomfort Ibuprofen (Ibuprofen 600 Mg Tablet) 600 mg PO Q6H [facility] Last Admin: 01/05/21 15:25 Dose: 600 mg Documented by: Methylergonovine Maleate (Methylergonovine 0.2 Mg/Ml Ampul) 0.2 mg IM X1 PRN PRN Reason: Uterine Atony Naloxone HCl (Naloxone 0.4 Mg/Ml Syringe) 0.02 mg IV Q1M PRN PRN Reason: RR <10 and pt unresponsive Ondansetron HCl (Ondansetron 4 Mg/2 Ml Vial) 4 mg IV Q4H PRN PRN PRN Reason: Nausea Last Admin: 01/04/21 17:20 Dose: 4 mg Documented by: Oxycodone HCl (Oxycodone 5 Mg Tablet) 5 - 10 mg PO Q4H PRN PRN PRN Reason: Pain Score 4-10 Prochlorperazine Edisylate (Prochlorperazine 10 Mg/2 Ml Vial) 10 mg IV Q6H PRN PRN PRN Reason: NAUSEA Last Admin: 01/04/21 18:42 Dose: 10 mg Documented by: Senna/Docusate Sodium (Senna/Docusate Sodium 1 Tablet) 1 - 2 tablet PO DAILY [facility] Last Admin: 01/05/21 11:27 Dose: 1 tablet Documented by: Simethicone (Simethicone 80 Mg Tablet) 80 mg PO PCHS PRN PRN Reason: Indigestion/stomach pain Sodium Chloride (0.9% Saline Lock 10 Ml Syringe) 5 - 15 ml IV UD PRN PRN Reason: SALINE FLUSH Last Admin: 01/05/21 02:31 Dose: 10 ml Documented by: Home Medications: Medications to take at Discharge Bupropion HCl [Wellbutrin Sr] 100 mg PO DAILY 01/04/21 Vits [Prenatabs FA ] 1 tablet PO DAILY 01/04/21 Ferrous Sulfate 325 mg PO 1200,1700 tablet 01/05/21 Ibuprofen [Motrin] 600 mg PO Q6H tablet 01/05/21 Primary Care Physician: Care Physician,No Primary [Primary Care Provider] - Medical Necessity - Tobacco Use Smoking Status: Current every day smoker Meaningful Use Info Meaningful Use Diagnoses (Choose all that apply): None applicable
--- NOTE | 2021-01-05 16:17 | DCINST_ITS ---
Discharge Diet: No Restrictions Discharge Activity: May Not Drive - for 2 weeks or while taking narcotic pain meds., May Shower, May Take a Tub Bath - in 7 days. May resume sexual activity in: 4-6 weeks Weight Bearing Status: Full weight bearing Lifting Restrictions: 20 pounds Additional Activity Instructions:: Nothing in the vagina for 4-6 weeks. You may return to work/school in 6 weeks. Call your doctor if your incision/area has: Continuous Slow Oozing, Sudden Increased Bleeding, Increased Pain/ Swelling, Increased Redness, Foul Smelling Discharge Call your doctor if you observe: Fever of 101 or Higher, Inability to urinate, Inability to have a bowel movement, Using more than one pad per hour, Shortness of breath, Chest pain, Increased palpitations (irregular heartbeat), Calf discomfort, Uncontrolled pain Suture Line Care: Avoid Pulling/Pushing, Avoid Pinching/Bending Additional Instructions: If you experience any of the following, contact your healthcare provider. * Bleeding that soaks a pad every hour for 2 hours * Fever 100.4 or higher * Unrelieved incision or abdominal pain * Swelling, redness, discharge or bleeding from your incision or episiotomy site * Your incision begins to separate * Problems urinating (including inability to urinate or burning while urinating). * Visual changes * Severe headache * Flu-like symptoms * Pain or redness in one of both of your breasts * Pain, warmth, tenderness or swelling in your legs, especially the calf area * Frequent nausea and vomiting * Symptoms of depression or anxiety If you experience any of the following, call 911 or go to the nearest Emergency Room. * Chest pain * Problems breathing * Seizure activity * Partial or complete paralysis of a body part, slurred speech, weakness or drooping of the face, or a sudden inability to walk or hold your balance Allergies/Adverse Reactions: Allergies No Known Allergies Allergy (Verified 01/04/21 10:15) Medications to take at Discharge Bupropion HCl [Wellbutrin Sr] 100 mg PO DAILY 01/04/21 Vits [Prenatabs FA ] 1 tablet PO DAILY 01/04/21 Ferrous Sulfate 325 mg PO 1200,1700 tablet 01/05/21 Ibuprofen [Motrin] 600 mg PO Q6H tablet 01/05/21 Follow-Up: Call to make an appointment with your doctor for an incision check in 1-2 weeks. You will also need a 6 week post- follow up appointment. Test results from this visit will be discussed in further detail at your follow- up appointment, if applicable. Please Follow Up With: Carito Suero DO Primary Care Physician: Care Physician,No Primary [Primary Care Provider] -
== END 2021-01-05 17:25 | disposition home or self-care (01) | DRG 788 ==
PROVIDERS: Advanced Practice Midwife; Admitting Provider Obstetrics & Gynecology; Referring Provider Obstetrics & Gynecology; Visit Provider Obstetrics & Gynecology
PROC: 10D00Z1 Extraction of Products of Conception, Low, Open Approach (ICD-10-PCS; CPT 59514; principal; 2021-01-04 11:45)
DX: O34.211 Maternal care for low transverse scar from previous cesarean delivery (principal); N83.7 Hematoma of broad ligament; O77.0 Labor and delivery complicated by meconium in amniotic fluid; O24.424 Gestational diabetes mellitus in childbirth, insulin controlled; O69.81X0 Labor and delivery complicated by cord around neck, without compression, not applicable or unspecified; O99.344 Other mental disorders complicating childbirth; O99.334 Smoking (tobacco) complicating childbirth; F17.200 Nicotine dependence, unspecified, uncomplicated; F31.9 Bipolar disorder, unspecified; F41.0 Panic disorder [episodic paroxysmal anxiety]; F41.9 Anxiety disorder, unspecified; Z87.410 Personal history of cervical dysplasia; Z3A.39 39 weeks gestation of pregnancy; Z37.0 Single live birth
CPT/HCPCS: 80307; 82962; 85025; 85027; 86850; 86900; 86901; 99218; 99251; J7120; A4216; G0378; G0463; J2405

== ENCOUNTER → 2023-09-15 | Outpatient (CLI) | payer BC, SELFPAY ==
[2023-09-15 14:59] LABS: Hematocrit 43.9 % (37-47); Hemoglobin 15.2 g/dL (12.0-15.0); Mean Corp Hgb Conc 34.6 g/dL (32-36); Mean Corpuscular Volume 89.4 fL (81-99); Mean Platelet Vol. 9.4 fl (6.2-12.0); Platelet Count 316 K/mm3 (150-450); RBC Distribution Width CV 12.9 % (11.6-14.6); RBC Distribution Width SD 42.5 fl (35.1-43.9); Red Blood Count 4.91 M/mm3 (4.2-5.4); White Blood Count 15.3 K/mm3 (4.4-11.0)
[2023-09-15 15:13] LABS: ALB/GLOB Ratio 1.1 RATIO (0.9-2.4); AST(SGOT) 21 U/L (15-37); Alanine Aminotransfer ALT/SGPT 34 U/L (13-56); Albumin, Serum 4.2 g/dL (3.2-5.0); Alkaline Phosphatase 60 U/L (45-117); Anion Gap 6 (5-15); BUN 7 mg/dL (7-18); BUN/Creat Ratio 11.2 RATIO (10-20); Calcium,Total 9.2 mg/dL (8.5-10.1); Chloride 108 mmol/L (98-107); Creatinine, Serum 0.62 mg/dL (0.55-1.02); EST Glomerular Filtration Rate 118 mL/min (>60); Est Glom Filt Rate - Afr Amer 142 mL/min (>60); Globulin 3.7 g/dL (2.2-4.2); Glucose 101 mg/dL (74-106); Protein, Total 7.9 g/dL (6.4-8.2); Sodium Level 140 mmol/L (136-145)
[2023-09-15 15:17] LABS: hCG Titer Quant., Serum < 1 mIU/mL (1-3)
== END | disposition home or self-care (01) ==
LOC: LAB 14:25
PROVIDERS: PCP Internal Medicine; Referring Provider Obstetrics & Gynecology; Visit Provider Obstetrics & Gynecology
DX: Z34.90 Encounter for supervision of normal pregnancy, unspecified, unspecified trimester (principal); Z97.5 Presence of (intrauterine) contraceptive device; Z3A.00 Weeks of gestation of pregnancy not specified
CPT/HCPCS: 36415; 80053; 84702; 85027; 86900; 86901

== ENCOUNTER → 2023-09-17 | Outpatient (CLI) | payer BC, SELFPAY ==
[2023-09-17 15:38] LABS: hCG Titer Quant., Serum < 1 mIU/mL (1-3)
== END | disposition home or self-care (01) ==
LOC: LAB 14:34
PROVIDERS: PCP Internal Medicine; Referring Provider Obstetrics & Gynecology; Visit Provider Obstetrics & Gynecology
DX: Z34.90 Encounter for supervision of normal pregnancy, unspecified, unspecified trimester (principal); Z97.5 Presence of (intrauterine) contraceptive device
CPT/HCPCS: 36415; 84702

== ENCOUNTER 2024-12-23 14:32 | Emergency (ER) | payer OTHER, SELFPAY ==
[2024-12-23 14:33] VITALS: BP 165/87; PULSE 101; RESP 16; TEMP 36.4; O2SAT 98; BMI 28.1
[2024-12-23 15:33] VITALS: BP 140/90
[2024-12-23 15:58] VITALS: BP 140/91
--- NOTE | 2024-12-23 16:01 | EKG12_ITS ---
Test Reason : PLACEMENT Blood Pressure : */* mmHG Vent. Rate : 95 BPM Atrial Rate : 95 BPM P-R Int : 138 ms QRS Dur : 82 ms QT Int : 358 ms P-R-T Axes : 57 71 46 degrees QTcB Int : 449 ms Normal sinus rhythm Normal ECG Confirmed by KAREN PRICE, MILADYS ([id number]), editor at large VIDHI GIBSON ([id number]) on 12/27/2024 10:50:53 AM Referred By: Confirmed By: MILADYS JONES MD
--- NOTE | 2024-12-23 16:09 | EX.ED.VIS.PS ---
HPI HPI - Psych History of Present Illness Chief Complaint: Depression Informant: patient Narrative Narrative: Sent in by crisis for medical clearance and placement. She states 2020 diagnosis bipolar hospitalized. She currently got afterwards her first medications. She states her last couple months feeling down.. She saw counseling center to get started on Wellbutrin. Since 5 days ago difficulty sleeping palpitations staying awake. She is feeling more down. Yesterday had suicidal thoughts with no plan. She is with 2 children. No relationship issues. She is a [id number] mom, she enjoys being a mother. He is no alcohol however none recently. Denies any recreational drug use. Denies homicidal ideations. Denies any hallucinations. States due to her symptoms she went to crisis today had a discussion they referred here for medical clearance and plan placement. I reviewed crisis evaluation paperwork, patient and her significant other was at crisis, without she would benefit from placement. Prior similar symptoms: Yes PFSH PFSH Medical History no medical history Home Medications ?Medication ?Instructions ?Recorded ?Last Taken ?Type bupropion HCl 150 mg 24 hr tablet, 150 mg PO DAILY 12/23/24 Unknown History extended release cephalexin 500 mg capsule 500 mg PO Q12 #14 CAPSULES 12/23/24 Unknown Rx Allergy/AdvReac Type Severity Reaction Status Date / Time No Known Allergies Allergy Verified 12/23/24 14:36 Family History no significant family his Surgical History no surgical history Social History Smoking Status: Light Smoker (<10/day) ROS [facility] ED Constitutional Constitutional ED: Denies chills, fever(s) or sweats ENT ENT ED: Denies sore throat Cardiovascular Cardiovascular: Reports palpitations; Denies chest pain, leg edema or racing heartbeat Respiratory/Chest Respiratory/Chest: Denies cough, dyspnea or dyspnea on exertion Gastrointestinal Gastrointestinal: Denies abdominal pain, diarrhea, nausea or vomiting Genitourinary Genitourinary ED: Denies dysuria, hematuria or urinary frequency Musculoskeletal Musculoskeletal: Denies back pain, extremity pain or neck pain Integumentary Denies rash or wounds Neurologic Neurologic: Denies headache(s), paresthesias or weakness Psychiatric Psychiatric: Reports depression and suicidal thoughts EXAM Physical Exam Const Vital Signs: 12/23/24 14:33 12/23/24 15:33 12/23/24 15:58 Temperature 97.6 F L Temperature Source Temporal Pulse Rate 101 H Respiratory Rate 16 Blood Pressure 165/87 H 140/90 H 140/91 H Blood Pressure Mean 113 106 107 Pulse Ox 98 Oxygen Delivery Method Room Air 12/23/24 17:00 12/23/24 22:04 Temperature 97.6 F L Temperature Source Pulse Rate 78 78 Respiratory Rate 16 Blood Pressure 132/84 H 132/84 H Blood Pressure Mean 100 100 Pulse Ox 100 100 Oxygen Delivery Method Room Air Positive well nourished and well developed General Appearance ED: well developed and NAD HEENT Reports moist mucous membranes normocephalic and atraumatic Eyes General Eye ED: Yes normal appearance of both eyes Neck full ROM Chest Wall Chest: Negative for tenderness Resp normal respiratory effort and normal air movement Effort and Inspection: symmetric chest movement; Negative for respiratory distress Cardio regular rate, regular rhythm and no murmurs Peripheral Pulses: pulses 2+ throughout GI normal to inspection, nondistended, normoactive bowel sounds and non-tender Palpation: Negative for guarding or rebound tenderness present Extremity normal to inspection General Extremety ED: Negative for edema or tenderness General Extremity: Negative for edema Neuro oriented x3 and no sensory deficits noted Sensorium / Orientation: awake and alert Psych Psych Narrative: Flat affect, cooperative, admitted suicidal thoughts yesterday. No plan. Skin no rashes or lesions noted and no wounds MDM MDM MDM Narrative Medical decision making narrative: Interventions / MDM: Differential diagnosis: Depression with suicidal ideation, UTI Diagnosis considered but do not suspect: N/A My EKG interpretation: Sinus rhythm 95, no ST or T wave changes. Imaging independently reviewed and interpreted by myself: N/A External documents reviewed: N/A Test considered but not ordered:N/A ED course: Vital stable here for medical clearance reports palpitations. Will get EKG. Will get medical clearance labs. 1750: EKG sinus rhythm no acute findings. Labs notable white count 13.7 normal creatinine normal electrolytes. Alcohol negative. Toxicology negative. With a white count added urine had blood leukocytes small amount white cells. 2+ bacteria. Sent for urine culture patient does report urine frequency no dysuria. Will start her on Keflex. Awaiting acceptance at psychiatric facility. Patient accepted to [facility] under Dr. Hendrickson. Await transport. Re-evaluation: stable Disposition discussed with patient/family/significant other: Patient Case discussed with consulting clinician: monitor worker This note was generated with [employer] dictation software. It may contain incorrect words, spelling, and punctuation that were not noted in checking the note before signing. Lab Data Labs: Laboratory Results - last 24 hr 12/23/24 12/23/24 16:27 16:30 WBC 13.7 H RBC 4.76 Hgb 14.7 Hct 41.1 MCV 86.3 MCH 30.9 MCHC 35.8 RDW Std Deviation 39.6 RDW Coeff of Miko 12.7 Plt Count 308 MPV 9.1 Immature Gran % (Auto) 0.400 Neut % (Auto) 70.2 H Lymph % (Auto) 23.9 Banner % (Auto) 3.4 Eos % (Auto) 1.6 Baso % (Auto) 0.5 Absolute Neuts (auto) 9.6 H Absolute Lymphs (auto) 3.27 Nucleated RBC % 0 Sodium 137 Potassium 3.7 Chloride 103 Carbon Dioxide 20.0 L Anion Gap 14 BUN 6 Creatinine 0.59 L Estim Creat Clear Calc 133.97 Est GFR (MDRD) Non-Af 122 BUN/Creatinine Ratio 9.5 L Glucose 122 H Calcium 9.6 Serum , Qual NEGATIVE Urine Color Red Urine Clarity Sl. Cloudy Urine pH 7.0 Ur Specific [place] 1.005 Urine Protein 500 H Urine Glucose (UA) Normal Urine Ketones Negative Urine Occult Blood 250 H Urine Nitrite Negative Urine Bilirubin Negative Urine Urobilinogen Normal Ur Leukocyte Esterase 100 H Urine RBC > 100 SEEN Urine WBC 10-25 SEEN Ur Squamous Epith Cells 0-5 SEEN Urine Bacteria 2+ Urine Mucus 0 SEEN Urine Opiates Screen NEGATIVE U Buprenorphine Qual NEGATIVE Ur Oxycodone Screen NEGATIVE Urine Methadone Screen NEGATIVE Urine Fentanyl Screen NEGATIVE Ur Barbiturates Screen NEGATIVE Ur Phencyclidine Scrn NEGATIVE Ur Amphetamines Screen NEGATIVE U Benzodiazepines Scrn NEGATIVE Urine Cocaine Screen NEGATIVE U Cannabinoids Screen NEGATIVE Ethyl Alcohol < 10.1 Discharge Plan Triage Chief Complaint: Depression ED Provider: Jamie Medina Dx/Rx/DC Orders Clinical Impression: Depression with suicidal ideation, UTI (urinary tract infection) Prescriptions: New cephalexin 500 mg capsule 500 mg PO Q12 Qty: 14 0RF No Action bupropion HCl 150 mg tablet extended release 24 hr 150 mg PO DAILY Primary Care Provider: [facility] Doctor,Out of Referrals: [facility] Doctor,Out of [Primary Care Provider] - Print Language: [place] Disposition Disposition: Psychiatric Hospital or Unit
[2024-12-23 16:45] LABS: Absolute Lymphocyte Count 3.27 X10^3/uL (0.83-4.51); Absolute Neutrophil Count 9.6 X10^3/uL (2.0-7.7); Basophil# 0.07 X10^3/uL; Basophil% 0.5 % (0-1); Eosinophil# 0.22 X10^3/uL; Eosinophils% 1.6 % (0-5); Hematocrit 41.1 % (37-47); Hemoglobin 14.7 g/dL (12.0-15.0); Lymphocyte # 3.27 X10^3/ul (0.83-4.51); Lymphocyte % 23.9 % (19-41); Mean Corp Hgb Conc 35.8 g/dL (32-36); Mean Corpuscular Hgb 30.9 pg (27.0-32.0); Mean Corpuscular Volume 86.3 fL (81-99); Mean Platelet Vol. 9.1 fl (6.2-12.0); Monocyte# 0.46 X10^3/uL; Monocyte% 3.4 % (0-10); NRBC Flagged by Analyzer 0 % (0-5); Neutrophil % 70.2 % (47-70); Platelet Count 308 K/mm3 (150-450); RBC Distribution Width CV 12.7 % (11.6-14.6); RBC Distribution Width SD 39.6 fl (35.1-43.9); Red Blood Count 4.76 M/mm3 (4.2-5.4); White Blood Count 13.7 K/mm3 (4.4-11.0)
[2024-12-23 17:00] VITALS: BP 132/84; PULSE 78; O2SAT 100
[2024-12-23 17:14] LABS: Mucous, Urine 0 SEEN /hpf (<or=2+)
[2024-12-23 17:15] LABS: Alcohol, Blood (Medical)-Serum < 10.1 mg/dL (<=10.0); Amphetamine Urine NEGATIVE (<1000 ng/mL); Anion Gap 14 (5-15); BUN 6 mg/dL (4-19); BUN/Creat Ratio 9.5 RATIO (10-20); Barbiturate Urine NEGATIVE (< 200 ng/mL); Benzodiazepine Urine NEGATIVE (< 200 ng/mL); Buprenorphine Urine NEGATIVE (< 200 ng/mL); Calcium,Total 9.6 mg/dL (7.6-11.0); Chloride 103 mmol/L (98-108); Cocaine Urine NEGATIVE (< 300 ng/mL); Creatinine, Serum 0.59 mg/dL (0.70-1.20); EST Glomerular Filtration Rate 122 (>60); Estimated Creatinine Clearance 133.97 ml/min (50-250); Fentanyl, Urine NEGATIVE; Glucose 122 mg/dL (70-99); Methadone Urine NEGATIVE (< 300 ng/mL); Opiates Urine NEGATIVE (< 300 ng/mL); Oxycodone, Urine NEGATIVE (< 100 ng/mL); PCP Urine NEGATIVE (< 25 ng/mL); Potassium 3.7 mmol/L (3.3-5.1); Sodium Level 137 mmol/L (133-145); THC Urine NEGATIVE (< 50 ng/mL)
[2024-12-23 17:22] LABS: Internal QC Validated? YES +Cl - CLEAR BKGD; Pregnancy, Serum, hCG Quali. NEGATIVE Negative
[2024-12-23 17:27] LABS: Color, Urine Red (Yellow); Glucose, Dipstick Normal (Normal); Ketone-Dipstick Negative (Negative); Leukocyte Esterase-Dipstick 100 /ul (Negative); Nitrite-Dipstick Negative (Negative); Occult Blood-Urine 250 /ul (Negative); Protein-Dipstick 500 mg/dl (Negative); Specific Gravity, Urine 1.005 (1.002-1.030); Urine Bilirubin Dipstick Negative (Negative); Urine Clarity Sl. Cloudy (Clear); Urine Urobilinogen Normal (Normal)
[2024-12-23 17:48] LABS: Bacteria 2+ /hpf (None Seen); Red Blood Cells-Urine > 100 SEEN /hpf (0-5); Squamous Epithelial Cells - UA 0-5 SEEN /hpf (5-10); White Blood Cells 10-25 SEEN /hpf (0-5)
[2024-12-23] MEDS: Cephalexin 250 MG Capsule 500 MG PO (18:01)
[2024-12-23] MEDS: Acetaminophen 500 MG Tablet 1000 MG PO (18:01)
--- NOTE | 2024-12-23 19:05 | CM.ED ---
Social Work Patient was assessed by Crisis, determined to need inpatient hospitalization. Patient and crisis agreed on initial referral after med clearance to be sent to [facility]. Information was sent however [facility] called requesting additional information. All information requested was sent. Plan: Inpatient psychiatric hospitalization pending acceptance. Becky Lira, CHICKEN HANDLER, MAIL PROCESSING ASSOCIATE
--- NOTE | 2024-12-23 19:53 | CM.ED ---
Social Work Patient was accepted at [facility]. Will be going to the [facility]. Admitting physician is Dr. Hendrickson. Nurse to nurse [phone]. [place] slip faxed. Patient notified that she was accepted at [facility]. No further needs identified at this time. Becky Lira, FLEET DIRECTOR, ELECTRONIC HEALTH RECORDS SPECIALIST
[2024-12-23 22:04] VITALS: BP 132/84; PULSE 78; RESP 16; TEMP 36.4; O2SAT 100
== END 2024-12-24 00:28 ==
PROVIDERS: Emergency Provider Emergency Medicine; Visit Provider Emergency Medicine
DX: F31.9 Bipolar disorder, unspecified (principal); R45.851 Suicidal ideations; N39.0 Urinary tract infection, site not specified; F17.200 Nicotine dependence, unspecified, uncomplicated
CPT/HCPCS: 36415; 80048; 80307; 81001; 82077; 84703; 85025; 87086; 87088; 93005; 99283